=== PATIENT | female | born 1965 | race Caucasian/White ===

== ENCOUNTER 2016-12-13 18:28 | Observation (INO) ==
[2016-12-13] MEDS ORDERED: Aspirin 81 MG TAB.CHEW PO STA (19:22)
[2016-12-13 19:38] LABS: Hematocrit 30.9 % (35.3-44.9); Immature Granulocytes % 0.5 % (0-4); Lymphocytes # 1.9 K/mcL (0.6-4.6); Lymphocytes % 29.3 %; Mean Corpuscular HGB Conc 32.4 g/dL (31.6-35.5); Mean Corpuscular Hemoglobin 26.3 pg (28.0-33.3); Mean Corpuscular Volume 81.3 fL (83.0-100.0); Monocytes # 0.5 K/mcL (0.0-1.3); Monocytes % 6.9 %; Neutrophils # 4.2 K/mcL (1.6-8.9); Platelet Count 270 K/mcL (140-400); Red Cell Distribution Width 16.2 % (11.5-14.5); Segmented Neutrophils % 63.3 %
--- NOTE | 2016-12-13 19:42 | Emergency Department Note ---
Disposition Clinical Impression: Chest pain Qualifiers: Chest pain type: precordial pain Qualified Code(s): R07.2 - Precordial pain Disposition: Admitted As Inpatient Condition: Good Chest Pain HPI - General Chief Complaint: ED Chest Pain Stated Complaint: CP,JOSE MIGUEL,Dizziness Time Seen by Provider: 12/13/16 18:36 Source: patient, family Limitations: no limitations Vital Signs Reviewed: Yes Nursing Notes Reviewed: Yes - History of Present Illness HPI Narrative: Patient presents today for evaluation of multiple complaints. Patient has had increased swelling of her lower extremities and going on for some time but has been recently worse. Patient describes chest pain in the center of her chest with mild radiation associated dizziness. Patient states that she has had several episodes of diaphoresis she describes getting sweaty. These do not always correlate. Patient does have in her ear issues and has had episodes of problems consistent with what appears to be dizziness that is worse with head movement to the left. Tympanic membranes have mild dullness without obvious infection. Patient describes palpating factors including going through menopause and having hot and cold episodes. Patient has not had any previous cardiac workup. Severity scale (1-10): 8 - Related Data Home Medications Medication Instructions Recorded Confirmed Lisinopril/Hydrochlorothiazide 1 tab PO DAILY 04/30/15 12/13/16 [Zestoretic 20-25 mg Tablet] Citalopram Hydrobromide 40 mg PO DAILY 12/31/15 12/13/16 [Citalopram HBr] Lovastatin [Mevacor] 20 mg PO HS 12/31/15 12/13/16 Metformin HCl [Glucophage] 1,000 mg PO BID 12/31/15 12/13/16 Aspirin 325 mg PO DAILY 12/13/16 12/13/16 Insulin Degludec [Tresiba 42 unit SQ DAILY 12/13/16 12/13/16 Flextouch U-100] Oxybutynin [Ditropan] 5 mg PO BID 12/13/16 12/13/16 Allergies Allergy/AdvReac Type Severity Reaction Status Date / Time No Known Allergies Allergy Verified 01/13/16 15:54 Review of Systems: CONSTITUTIONAL: Fatigue No weight loss, fever, chills, weakness HEENT: Eyes: No visual changes. Ears, Nose, Throat: No hearing loss, difficulty talking or unable to swallow. SKIN: No rash or itching. CARDIOVASCULAR: Chest pain and lower extremity edema RESPIRATORY: No shortness of breath, cough or sputum. GASTROINTESTINAL: No anorexia, nausea, vomiting or diarrhea. No abdominal pain or blood. GENITOURINARY: No burning on urination or hematuria. NEUROLOGICAL: Dizziness No headache, syncope, paralysis, ataxia, numbness or tingling in the extremities. No change in bowel or bladder control. MUSCULOSKELETAL: No muscle pain, back pain, joint pain or stiffness. Chest Pain PMH - Past Medical History Medical history: Reports: cancer, diabetes, hyperlipidemia, hypertension, kidney stones Surgical history: Reports: , cholecystectomy Psychiatric history: Reports: anxiety, depression - Social History Smoking Status: Former smoker Alcohol use: Reports: none Drug use: Reports: none Physical Exam General appearance: NAD, conversant Eyes: anicteric sclerae, moist conjunctivae; PERRL HENT: Atraumatic; oropharynx clear with moist mucous membranes and no mucosal ulcerations; TMs with dullness bilaterally no obvious erythema Neck: Normal inspection; Trachea midline; FROM, supple Lungs: CTA, with normal respiratory effort and no intercostal retractions CV: RRR, no MRGs Abdomen: Soft, non-tender; no rebound or gaurding Extremities: Swelling to her lower extremity bilaterally. Nonpitting. Skin: Normal temperature; no rash, ulcers or lesions Psych: Appropriate mood and affect Neuro: alert and oriented to person, place and time - General Limitations: no limitations General appearance: alert, in no apparent distress Course - Reevaluation(s) Reevaluation #1: Dizziness improved with meclizine. Patient describes a chest pain is improved but her states she is downplaying symptoms to go home. Patient has an elevated heart score and will be brought in for further chest pain evaluation. Vital Signs Temperature 98.3 F 12/13/16 18:36 Pulse Rate 77 12/13/16 18:36 Respiratory Rate 18 12/13/16 18:36 Blood Pressure 137/59 12/13/16 18:36 O2 Sat by Pulse Oximetry 97 12/13/16 18:36 Temperature 97.6 F 12/14/16 03:28 Pulse Rate 60 12/14/16 03:28 Respiratory Rate 12 12/14/16 03:28 Blood Pressure 120/77 12/14/16 03:28 O2 Sat by Pulse Oximetry 98 12/14/16 03:28 Oxygen Delivery Oxygen Delivery Room Air Chest Pain - Medical Records Medical records reviewed: Yes I reviewed the patient's medical records. - Lab Data Lab results reviewed: Yes I reviewed the patient's lab results. Result diagrams: 12/14/16 04:40 12/14/16 04:40 Lab Results 12/13/16 12/13/16 12/13/16 Range/Units 19:30 19:30 19:30 WBC 6.6 (4.3-11.1) K/mcL RBC 3.80 L (3.82-4.97) M/mcL Hgb 10.0 L (11.5-15.4) g/dL Hct 30.9 L (35.3-44.9) % MCV 81.3 L (83.0-100.0) fL MCH 26.3 L (28.0-33.3) pg MCHC 32.4 (31.6-35.5) g/dL RDW 16.2 H (11.5-14.5) % Plt Count 270 (140-400) K/mcL MPV 9.0 L (9.4-12.4) fL Immature Gran % 0.5 (0-4) % Seg Neutrophils % 63.3 % Lymphocytes % 29.3 % Monocytes % 6.9 % Eosinophils % 0.0 % Basophils % 0.0 % Neutrophils # 4.2 (1.6-8.9) K/mcL Lymphocytes # 1.9 (0.6-4.6) K/mcL Monocytes # 0.5 (0.0-1.3) K/mcL Eosinophils # 0.0 (0.0-0.6) K/mcL Basophils # 0.0 (0.0-0.2) K/mcL PT 12.8 H (9.4-12.1) Seconds INR 1.2 Sodium (136-145) mEq/L Potassium (3.5-4.5) mEq/L Chloride (98-109) mEq/L Carbon Dioxide (19-29) mEq/L BUN (7-20) mg/dL Creatinine (0.57-1.11) mg/dL Est GFR ( Amer) (> 60) Est GFR (Non-Af Amer) (> 60) BUN/Creatinine Ratio (6-26) Glucose (70-99) mg/dL Calculated Osmolality (280-300) Calcium (8.6-10.8) mg/dL Troponin I (0-0.03) ng/mL B-Natriuretic Peptide < 10 (0-100) pg/mL 12/13/16 12/13/16 Range/Units 19:30 19:30 WBC (4.3-11.1) K/mcL RBC (3.82-4.97) M/mcL Hgb (11.5-15.4) g/dL Hct (35.3-44.9) % MCV (83.0-100.0) fL MCH (28.0-33.3) pg MCHC (31.6-35.5) g/dL RDW (11.5-14.5) % Plt Count (140-400) K/mcL MPV (9.4-12.4) fL Immature Gran % (0-4) % Seg Neutrophils % % Lymphocytes % % Monocytes % % Eosinophils % % Basophils % % Neutrophils # (1.6-8.9) K/mcL Lymphocytes # (0.6-4.6) K/mcL Monocytes # (0.0-1.3) K/mcL Eosinophils # (0.0-0.6) K/mcL Basophils # (0.0-0.2) K/mcL PT (9.4-12.1) Seconds INR Sodium 137 (136-145) mEq/L Potassium 4.6 H (3.5-4.5) mEq/L Chloride 105 (98-109) mEq/L Carbon Dioxide 25 (19-29) mEq/L BUN 31 H (7-20) mg/dL Creatinine 1.12 H (0.57-1.11) mg/dL Est GFR ( Amer) > 60 (> 60) Est GFR (Non-Af Amer) 52 L (> 60) BUN/Creatinine Ratio 28 H (6-26) Glucose 158 H (70-99) mg/dL Calculated Osmolality 294 (280-300) Calcium 8.8 (8.6-10.8) mg/dL Troponin I 0.00 (0-0.03) ng/mL B-Natriuretic Peptide (0-100) pg/mL - Radiology Data Radiology results reviewed: Yes I reviewed the patient's radiology results. - EKG Data EKG attestation: Yes I reviewed and interpreted this EKG. EKG results narrative: EKG shows sinus rhythm with ventricular rate of 73 bpm. WA interval 196. QRS 95. QTC 389. The significant changes from previous of 04/28/15. Heart Score - Score History: Moderately Suspicious EKG: Non Specific repolarisation Disturbance Age: 45-65 Risk Factors: Equal/Greater than 3 risk factor or history of atherosclerotic disease Troponin: Less than normal limit HEART Score Total: 5 Attestation Statement - Attestation Attestation: I, Clyde Coy MD, personally evaluated this patient and discussed their management with the resident physician. I reviewed the resident's note and agree with the documented findings, medical decision making, and plan of care. 51-year-old female presents to the emergency department with a complaint of having increased swelling of her feet and ankles over the last week. She also complains that over the last 3 days she has had intermittent episodes of mid chest pain which she describes as pressure in the mid chest but states it does not last very long. Today about 3 PM she had an episode of vertigo when she stood up and states that the room started spinning and she got very diaphoretic and very nauseated. No headache. Shortly after the vertigo episode started she did have some chest pain which lasted longer than the previous episodes. She has no known prior history of heart problems other than she states that she does have a heart murmur. Patient is diabetic and has morbid obesity. On examination patient is a well-developed morbidly obese female in no acute distress. She is alert and oriented 3. There is no cyanosis or diaphoresis. Chest is nontender to palpation. Breath sounds are clear and equal bilaterally. Heart regular rate and rhythm. Abdomen soft and nontender with normal bowel sounds. 2+ bilateral pedal edema. No gross focal neurological deficits noted. Labs reviewed. EKG shows a sinus rhythm, heart rate 73, no acute changes or arrhythmia. Chest x-ray negative. The hospitalist was consulted and accepted admission of the patient.
[2016-12-13 19:46] LABS: INR 1.2; Prothrombin Time 12.8 Seconds (9.4-12.1)
[2016-12-13 19:51] LABS: BUN/Creatinine Ratio 28 (6-26); Blood Urea Nitrogen 31 mg/dL (7-20); Calcium 8.8 mg/dL (8.6-10.8); Carbon Dioxide 25 mEq/L (19-29); Chloride 105 mEq/L (98-109); Glucose 158 mg/dL (70-99); Osmolality,Calculated 294 (280-300); Potassium 4.6 mEq/L (3.5-4.5); Sodium 137 mEq/L (136-145); eGFR For African Americans > 60 (> 60); eGFR For Non-African Americans 52 (> 60)
[2016-12-14] MEDS ORDERED: Acetaminophen 325 MG TABLET PO PRN (03:01)
[2016-12-14] MEDS ORDERED: Naloxone 0.4 MG/ML INJ IVP PRN (03:01)
[2016-12-14] MEDS ORDERED: Ondansetron 4 MG/2 ML VIAL IVP PRN (03:01)
[2016-12-14] MEDS ORDERED: *HR* Dextrose 50 % in Water (Syg) 50 ML SYRINGE IVP PRN (03:01)
[2016-12-14] MEDS ORDERED: D5% in Water 1,000 ML IVC PRN (03:01)
[2016-12-14] MEDS ORDERED: Dextrose Gel 15 GM PO PRN ×2 (03:01)
[2016-12-14] MEDS ORDERED: *HR* Morphine 2 MG/ML SYRINGE IVP PRN (03:01)
--- NOTE | 2016-12-14 03:17 | Internal Med History&Physical ---
Date of Encounter: 12/14/16 Time of Encounter: 02:45 Assessment and Plan (1) Chest pain Current visit: Yes Status: Acute 1. Will cycle troponins. 2. Will order ECHO and nuclear stress test. 3. Check lipid profile. 4. Continue daily aspirin. Qualifiers: Chest pain type: precordial pain Qualified Code(s): R07.2 - Precordial pain (2) IDDM (insulin dependent diabetes mellitus) Current visit: Yes Status: Chronic 1. Will hold Metformin. 2. Will use SSI for now while npo. 3. Hold basal insulin for now as her glucose is 89 while npo. 4. Monitor glucose and adjust treatment as necessary. (3) Hypertension Current visit: Yes Status: Chronic 1. Monitor BP and continue home meds as appropriate. Qualifiers: Hypertension type: essential hypertension Qualified Code(s): I10 - Essential (primary) hypertension (4) DVT prophylaxis Current visit: Yes Status: Acute 1. Heparin SQ. Internal Medicine - H&P: HPI Chief complaint: chest pain, dizziness Admitted From: Emergency Dept Plans for Post Hospital Care: Home History of present illness: Ms. Miranda is a 51 year old female who presents with sudden onset of chest pain , dizziness, diaphoresis, and near syncope while at work today. She has been having chest pain off and on for the last 4 days, but today's episode was severe and rather frightening. She therefore came to the ER for evaluation. She was subsequently admitted to the hospitalist service. Upon my assessment of the patient, she is currently symptom-free and feels back to baseline. She reiterates the above history and admits to having had chest pain for the last few days. She denies any prior heart disease history, but she does have risk factors. She is diabetic and there is a history of heart disease in the family. She denies any tobacco use or alcohol use. She did have a stress test and echo 6 years ago which were negative. This is her first episode of chest pain since then. Past Med Surg Social Fam HX - Past Medical History Attestation: Yes The following information was validated with the patient. Source: patient, old records reviewed Medical history: cancer, diabetes, hyperlipidemia, hypertension, kidney stones Psychiatric history: anxiety, depression - Past Surgical History Surgical History: , cholecystectomy - Social History Smoking Status: Former smoker Smokeless Tobacco Status: No Alcohol use: none Drug use: none Current living situation: Home, With Family Activity Level: Independent ambulation - Family History Father Living Status: Hx Family Cardiac Disorders: Yes Mother Living Status: Still Living Hx Family Cardiac Disorders: No Internal Medicine - H&P: Meds Lisinopril/Hydrochlorothiazide [Zestoretic 20-25 mg Tablet] 1 tab PO DAILY 04/30 [History] Citalopram Hydrobromide [Citalopram HBr] 40 mg PO DAILY 12/31/15 [History] Lovastatin [Mevacor] 20 mg PO HS 12/31/15 [History] Metformin HCl [Glucophage] 1,000 mg PO BID 12/31/15 [History] Aspirin 325 mg PO DAILY 12/13/16 [History] Insulin Degludec [Tresiba Flextouch U-100] 42 unit SQ DAILY 12/13/16 [History] Oxybutynin [Ditropan] 5 mg PO BID 12/13/16 [History] Allergies No Known Allergies Allergy (Verified 01/13/16 15:54) - Constitutional Constitutional: no chills, no fever(s) - EENT Eyes: no blurry vision, no change in vision Ears: no ear pain, no tinnitus Nose, mouth and throat: no nasal congestion, no nasal discharge, no sinus pain, no sinus pressure, no sore throat - Cardiovascular Cardiovascular ROS IM: chest pain, diaphoresis, dyspnea, dyspnea on exertion, edema, lightheadedness, no irregular heart rhythm, no syncope - Respiratory Respiratory: no cough, no hemoptysis, no chest congestion - Gastrointestinal Gastrointestinal: no abdominal pain, no diarrhea, no hematemesis, no hematochezia, no melena, no nausea, no vomiting - Genitourinary Genitourinary: no dysuria, no flank pain, no hematuria - Musculoskeletal Musculoskeletal ROS IM: no arthralgias, no back pain, no muscle cramps - Integumentary Integumentary IM: no rash, no jaundice - Neurological Neurological ROS: dizziness, no focal weakness, no frequent falls, no headache(s ) - Psychiatric Psychiatric: no anxiety, no depression - Endocrine Endocrine IM: no cold intolerance, no heat intolerance, no polydipsia, no polyuria - Hematologic/Lymphatic Hematologic/Lymphatic: no easy bruising, no lymphadenopathy - Allergic/Immunologic Allergic/Immunologic: no GI upset with certain foods - Constitutional Vitals: Temp Pulse Resp BP Pulse Ox 97.6 F 63 12 126/74 96 12/13/16 22:56 12/13/16 22:56 12/13/16 22:56 12/13/16 22:56 12/13/16 22:56 General appearance: Present: cooperative, A&O X 3, pleasant, no acute distress - Head Head exam: Present: atraumatic, normal inspection - Eye Eye exam: Present: EOMI, normal appearance, PERRL. Absent: scleral icterus Pupils: Present: normal accommodation - ENT ENT exam: Present: mucous membranes moist, normal exam - Neck Neck exam general surgery: Present: full ROM, normal inspection, supple. Absent : tenderness - Expanded Neck Exam Neck exam: Absent: carotid bruit - Respiratory Respiratory exam: Present: CTAB. Absent: chest wall tenderness, rales, rhonchi , wheezes - Cardiovascular Cardiovascular exam: Present: distant heart sounds, RRR, +S1, +S2. Absent: diastolic murmur, systolic murmur - GI/Abdominal GI/Abdominal exam: Present: normal bowel sounds, soft. Absent: hepatomegaly, mass, splenomegaly, tenderness - Extremities Exam Extremities exam: Present: full ROM, normal capillary refill, warm, radial pulses palpable and symmetrical. Absent: calf tenderness, joint swelling, pedal edema - Back Exam Back exam: Present: normal inspection. Absent: CVA tenderness (L), CVA tenderness (R) - Neurological Exam Neurological exam: Present: alert, CN II-XII intact, oriented X3, no focal deficits, strengths equal and symetr throughout - Psychiatric Psychiatric exam: Present: normal affect, normal mood - Skin Skin exam: Present: dry, warm. Absent: rash Internal Med - H&P Results - Labs CBC & Chem 7: 12/13/16 19:30 12/13/16 19:30 - EKG Data -: EKG Interpreted by Myself EKG shows normal: sinus rhythm - EKG Data Prior EKG available for review: yes When compared to previous EKG: there is no significant change EKG comments: 12/14/16 03:21 NSR; no acute ST-T changes - Diagnostic Studies Chest x-ray Status: image reviewed by me (negative)
[2016-12-14] MEDS: Insulin LISPRO 300 UNITS/3 ML VIAL SQ SCH ×4 (05:19→23:36)
[2016-12-14] MEDS: *HR* Heparin 5,000 UNIT/ML VIAL SQ SCH ×3 (05:19→22:58)
[2016-12-14 05:20] LABS: Hematocrit 30.3 % (35.3-44.9); Hemoglobin 9.6 g/dL (11.5-15.4); Immature Granulocytes % 0.6 % (0-4); Lymphocytes # 1.8 K/mcL (0.6-4.6); Lymphocytes % 35.3 %; Mean Corpuscular HGB Conc 31.7 g/dL (31.6-35.5); Mean Corpuscular Volume 82.1 fL (83.0-100.0); Mean Platelet Volume 9.3 fL (9.4-12.4); Monocytes # 0.4 K/mcL (0.0-1.3); Monocytes % 8.4 %; Neutrophils # 2.9 K/mcL (1.6-8.9); Platelet Count 262 K/mcL (140-400); Red Blood Count 3.69 M/mcL (3.82-4.97); Segmented Neutrophils % 55.7 %
[2016-12-14 05:42] LABS: Alanine Aminotransferase 11 Units/L (0-55); Albumin 3.2 g/dL (3.5-5.0); Alkaline Phosphatase 73 Units/L (38-126); Aspartate Amino Transferase 10 Units/L (5-34); BUN/Creatinine Ratio 29 (6-26); Bilirubin,Total 0.4 mg/dL (0.2-1.2); Blood Urea Nitrogen 29 mg/dL (7-20); Calcium 9.2 mg/dL (8.6-10.8); Carbon Dioxide 27 mEq/L (19-29); Chloride 107 mEq/L (98-109); Chol/HDL Ratio 4.8 (0-4.9); Cholesterol 133 mg/dL (< 200); Globulin 3.3 g/dL (2.4-3.5); Glucose 117 mg/dL (70-99); HDL Cholesterol 28 mg/dL (40-59); LDL Cholesterol,Calculated 70 mg/dL (0-99); Magnesium 1.5 mg/dL (1.6-2.6); Osmolality,Calculated 295 (280-300); Potassium 4.8 mEq/L (3.5-4.5); Sodium 139 mEq/L (136-145); Total Protein 6.5 g/dL (6.0-8.3); Triglycerides 173 mg/dL (< 150); eGFR For African Americans > 60 (> 60); eGFR For Non-African Americans 58 (> 60)
[2016-12-14] MEDS ORDERED: Regadenoson 0.4 MG/5 ML SYRINGE IVP ONE (06:20)
[2016-12-14] MEDS ORDERED: Perflutren Lipid Microsphere 1.3 ML in 0.9 % Sodium Chloride 8.7 ML IVP ONE (13:25)
[2016-12-14] MEDS: Aspirin 325 MG TABLET PO SCH (14:58)
--- NOTE | 2016-12-14 15:16 | Electrocardiograph Report ---
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
--- NOTE | 2016-12-14 15:44 | Electrocardiograph Report ---
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
--- NOTE | 2016-12-14 16:42 | Internal Med Progress Note ---
Date of Encounter: 12/14/16 Time of Encounter: 15:20 - Assessment and plan (1) Chest pain Current Visit: Yes Status: Acute Assessment and plan: Patient denies chest pain. She said she has had no chest pain since arrival. Troponins were negative 3. Chest x-ray was negative for any acute process. Patient is a 2 day stress, day 2 is tomorrow. EKG was sinus rhythm with a rate of 60, SC interval 197, QRS is 86, QTC 405. Echocardiogram was technically challenging with suboptimal windows. LV systolic function was normal with the use of Definity with an LVEF of 60%, RV size appears dilated with normal function, mild TR. Lipid panel completed, triglycerides were elevated. She has been started on Zocor. Continue telemetry Stress test pending Monitor labs and pt condition Continue ASA and statin Qualifiers: Chest pain type: precordial pain Qualified Code(s): R07.2 - Precordial pain (2) Hypertension Current Visit: Yes Status: Chronic Assessment and plan: Chronic. Continue home medications, continue monitoring vital signs. Qualifiers: Hypertension type: essential hypertension Qualified Code(s): I10 - Essential (primary) hypertension (3) IDDM (insulin dependent diabetes mellitus) Current Visit: Yes Status: Chronic Assessment and plan: Continue SSI, Accuchecks achs, and diabetic diet. (4) DVT prophylaxis Current Visit: Yes Status: Acute Assessment and plan: Heparin SQ - Subjective Interval history: Patient was seen and assessed at 1520. She denies chest pain. She denies chest pain since arrival yesterday. She is 2 day a stress test, she is aware of this. She reports intentional 30 pound weight loss in the last 6 months, increased ankle and pedal edema, and her says that her breasts have changed and she has gained a cup size. Patient states that she had a nephrectomy due to renal cancer and has had edema since that time. - Constitutional Vitals: Temp Pulse Resp BP Pulse Ox 98.1 F 61 16 107/66 95 12/14/16 12:00 12/14/16 12:00 12/14/16 12:00 12/14/16 12:00 12/14/16 12:00 General appearance: Present: cooperative, A&O X 3, pleasant, no acute distress, loss of weight, answers questions appropriately. Absent: severe distress - Head Head exam: Present: normal inspection - Eye Eye exam: Present: normal appearance, conjuntiva pink - ENT ENT exam: Present: mucous membranes moist, normal exam, normal external ear exam - Neck Neck exam general surgery: Present: normal inspection. Absent: lymphadenopathy , tenderness - Respiratory Respiratory exam: Present: CTAB. Absent: chest wall tenderness, decreased breath sounds, rales, respiratory distress, rhonchi, stridor, wheezes - Cardiovascular Cardiovascular exam: Present: RRR, +S1, +S2. Absent: clicks, diastolic murmur, gallop, systolic murmur - GI/Abdominal GI/Abdominal exam: Present: distended, normal bowel sounds, soft. Absent: hepatomegaly, tenderness - Extremities Exam Extremities exam: Present: normal inspection, pedal edema, warm, radial pulses palpable and symmetrical. Absent: tenderness - Neurological Exam Neurological exam: Present: alert, oriented X3, no focal deficits. Absent: facial droop, speech deficit Internal Medicine: Result - Labs CBC & Chem 7: 12/14/16 04:40 12/14/16 04:40 Labs: Short CBC 12/14/16 Range/Units 04:40 WBC 5.2 (4.3-11.1) K/mcL Hgb 9.6 L (11.5-15.4) g/dL Hct 30.3 L (35.3-44.9) % Plt Count 262 (140-400) K/mcL Neutrophils # 2.9 (1.6-8.9) K/mcL BMP 12/14/16 04:40 Sodium 139 Potassium 4.8 H Chloride 107 Carbon Dioxide 27 BUN 29 H Creatinine 1.01 Glucose 117 H Calcium 9.2 Cardiac Enzymes 12/14/16 12/14/16 12/14/16 Range/Units 04:40 08:54 15:03 Troponin I 0.00 0.00 0.01 (0-0.03) ng/mL Liver Function 12/14/16 Range/Units 04:40 Total Bilirubin 0.4 (0.2-1.2) mg/dL AST 10 (5-34) Units/L ALT 11 (0-55) Units/L Alkaline Phosphatase 73 (38-126) Units/L Albumin 3.2 L (3.5-5.0) g/dL - ABG Interpretation ABG results: PT/INR, D-dimer PT 12.8 Seconds (9.4-12.1) H 12/13/16 19:30 Consult Discharge Plan - Plan Referrals: Sole Ashby, RONALD [Primary Care Provider] -
[2016-12-15 05:25] LABS: Hematocrit 30.8 % (35.3-44.9); Hemoglobin 9.8 g/dL (11.5-15.4); Immature Granulocytes % 0.8 % (0-4); Immature Platelets 1.1 % (1.1-6.1); Lymphocytes # 1.6 K/mcL (0.6-4.6); Lymphocytes % 33.8 %; Mean Corpuscular HGB Conc 31.8 g/dL (31.6-35.5); Mean Corpuscular Hemoglobin 26.1 pg (28.0-33.3); Mean Corpuscular Volume 81.9 fL (83.0-100.0); Mean Platelet Volume 9.4 fL (9.4-12.4); Monocytes # 0.4 K/mcL (0.0-1.3); Monocytes % 8.6 %; Neutrophils # 2.7 K/mcL (1.6-8.9); Platelet Count 277 K/mcL (140-400); Red Blood Count 3.76 M/mcL (3.82-4.97); Segmented Neutrophils % 56.8 %
[2016-12-15 05:36] LABS: BUN/Creatinine Ratio 26 (6-26); Blood Urea Nitrogen 26 mg/dL (7-20); Calcium 9.2 mg/dL (8.6-10.8); Carbon Dioxide 22 mEq/L (19-29); Chloride 108 mEq/L (98-109); Glucose 124 mg/dL (70-99); Osmolality,Calculated 292 (280-300); Sodium 138 mEq/L (136-145); eGFR For African Americans > 60 (> 60); eGFR For Non-African Americans 59 (> 60)
[2016-12-15] MEDS: *HR* Heparin 5,000 UNIT/ML VIAL SQ SCH (05:42)
[2016-12-15] MEDS: Insulin LISPRO 300 UNITS/3 ML VIAL SQ SCH ×2 (06:46→13:14)
[2016-12-15] MEDS: Aspirin 325 MG TABLET PO SCH (08:07)
--- NOTE | 2016-12-15 11:39 | Nuclear Medicine Stress Report ---
Regadenoson Nuclear 2 day Name: Eleni Miranda Date of Study: 12/14/2016 Date: 1965 Ht: 68.0 in Medical Record#: [id number] Age: 51 Wt: 388.0 lb Gender: Female Order #: [id number] Location: [facility] Room: 3B Supervising Provider: Ricky Chu CNP Reading Physician: Michael Hinojosa MD, [facility] Ordering Physician: Karo Macdonald CNP Primary Care Physician: Sole Ashby CNP Stress Technologist: Christie Palencia [employer] MECHANIC APPRENTICE, CCT Equal Opportunity Director: Conchita Alvarez Indications: Chest Pain Impression: Technically difficult study due to body habitus and some patient motion artifact. Gated LVEF > 70%. Small-medium sized, mild-moderate intensity, reversible perfusion defect involving the apical anterior wall, apical lateral wall, and apex. Findings are consistent with reversible myocardial ischemia involving the apical anterior wall, apical lateral wall, and apex. Abnormal results were communicated to the ordering provider via [employer] message. History: Hypertension Diabetes Hypercholesteremia Stress Test Summary: Stress Test Type: Pharmacologic Regadenoson 0.4mg/5ml given IV Baseline Information: Initial Heart Rate: 63 Blood Pressure: 122/66 Stress Information: Test Terminated Due to (primary): As per protocol Maximum Blood Pressure: 126/64 Maximum Heart Rate: 90 Percent Maximum Heart Rate Achieved: 53 Double Product: [id number] Symptoms: No chest symptoms Nuclear Summary: SPECT myocardial perfusion imaging using Tc99m Sestamibi given intravenously was performed at rest and following cardiac stress testing. The resting images were obtained following initial dose of 33.8 mCi. Following stress an additional dose of 35.3 mCi was given at peak exercise or 30 seconds post regadenoson infusion. Findings: Stress Note * Resting ECG demonstrated sinus rhythm, low voltage in precordial leads. * No baseline arrhythmias were noted. * Patient had no chest pain during stress. * No arrhythmias were noted during stress. * No significant ECG changes with regadenoson. Hemodynamic responses * Normal hemodynamic responses to pharmacologic stress. Study Quality * Technically difficult study due to body habitus and some patient motion artifact. Gated EF > 70% * Gated LVEF > 70%. Left Ventricle * The left ventricle is not dilated. * Normal Segmental Perfusion in rest. * Small-medium sized, mild-moderate intensity, reversible perfusion defect involving the apical anterior wall, apical lateral wall, and apex. * Findings are consistent with reversible myocardial ischemia involving the apical anterior wall, apical lateral wall, and apex. * All other segmental perfusion normal in stress. TID * No evidence of transient ischemic dilatation. Updated by Michael Hinojosa MD, FACC on 12/15/2016 11:32:20 AM electronically signed on 12/15/2016 11:33:12 AM with status of Final
[2016-12-15 15:02] VITALS: BP 127/75
--- NOTE | 2016-12-15 16:15 | Cardiology Consult Note ---
Date of Encounter: 12/15/16 Time of Encounter: 16:10 Assessment and Plan (1) Abnormal stress test Current Visit: Yes Status: Acute Stress test was a two day study. It was technically difficult due to body habitus. Stress test showed: Gated LVEF > 70%. Small-medium sized, mild-moderate intensity, reversible perfusion defect involving the apical anterior wall, apical lateral wall, and apex.Findings are consistent with reversible myocardial ischemia involving the apical anterior wall, apical lateral wall, and apex. TTE was also a difficult study that showed preserved EF and no significant valvular disease. (Mild TR). Cardiac risk factors HTN, HLD, and DM type II. Chest pain was atypical. I discussed [facility] indications, benefits, risks, and alternatives. Medical management also discussed. She does have solitary kidney secondary to renal cancer. Stress test was a poor study, low risk test. She agrees with medical management and out patient f/u/ Add betablocker and SL NTG. Continue statin and asa. Out-pt f/u will be scheduled with [facility]. Discussion w patient/family: The assessment and plan as outlined above was discussed with the patient and/or family members who expressed understanding and agreement. All questions were answered. Thank you for involving us in the care of your patient. Please call with any questions. History of Present Illness Consult date: 12/15/16 Requesting physician: Viviana Danielle Consult reason: Abnormal stress test Chief complaint: Chest pain and SOB History of present illness: Ms. Miranda is a 51 year old female with a past medical history of HTN, HLD, DM , renal cancer s/p nephrectomy, and morbid obesity who presents with chest discomfort starting yesterday. She c/o midsternal chest pressure starting while she was at work sitting at her desk. The pain was associated with dizziness and diaphoresis. Reports she sometimes she breaks out in a hot sweat without chest pain. She was given meclizine in the ER with relief of her dizziness. She also c/o SOB with activity that is normal for her. She reports having chest discomfort before. The pain often occurs with emotional stress and anxiety. Cardiac work-up included troponin x 3 that were negative. EKG showed NSR with no EKG changes. She underwent a stress test that was found to be abnormal and cardiology was consulted for evaluation. Past Med Surg Social Fam HX - Past Medical History Medical history: cancer, diabetes, hyperlipidemia, hypertension, kidney stones Psychiatric history: anxiety, depression - Past Surgical History Surgical History: , cholecystectomy - Social History Smoking Status: Former smoker Smokeless Tobacco Status: No Alcohol use: none Drug use: none - Family History Father Living Status: Hx Family Cardiac Disorders: Yes Mother Living Status: Still Living Hx Family Cardiac Disorders: No Medications and Allergies Lisinopril/Hydrochlorothiazide [Zestoretic 20-25 mg Tablet] 1 tab PO DAILY 04/30 [History] Citalopram Hydrobromide [Citalopram HBr] 40 mg PO DAILY 12/31/15 [History] Lovastatin [Mevacor] 20 mg PO HS 12/31/15 [History] Metformin HCl [Glucophage] 1,000 mg PO BID 12/31/15 [History] Aspirin 325 mg PO DAILY 12/13/16 [History] Insulin Degludec [Tresiba Flextouch U-100] 42 unit SQ DAILY 12/13/16 [History] Oxybutynin [Ditropan] 5 mg PO BID 12/13/16 [History] 3 Allergy/AdvReac Type Severity Reaction Status Date / Time No Known Allergies Allergy Verified 01/13/16 15:54 All Systems Review: A 10-system review of systems was performed and is negative for pertinent findings except as documented above in the HPI. Physical Examination Vital Signs, Last 4 Hours Temp Pulse Resp BP Pulse Ox 12/15/16 14:59 98.3 F 65 14 127/75 96 General: Conversant, No Apparent Distress, Other (morbidly obese female) HEENT: Atraumatic, Normocephaly, Mucus Membranes Moist Neck: No JVD, Normal carotid pulses Cardiac: Reg Rate and Rhythm, Normal S1 and S2, No Murmur Lungs: Normal Breath Sounds, No Wheeze, Rales, Rhonchi Neuro: Alert and responsive, No focal deficits noted Abdomen: Soft, Non-Tender Skin: No rashes noted on visualized skin Musculoskeletal: No Chest Wall Tenderness Extremities: No Clubbing, No Cyanosis, No Edema, Normal Pulses Results 12/15/16 04:28 12/15/16 04:28 Lab Results 12/15/16 12/15/16 04:28 04:28 WBC 4.8 Hgb 9.8 L Hct 30.8 L Plt Count 277 Sodium 138 Potassium 5.0 H Chloride 108 Carbon Dioxide 22 BUN 26 H Creatinine 1.00 Glucose 124 H Calcium 9.2 - Imaging and Cardiology Stress Test: report reviewed Echo: report reviewed - EKG Interpretation EKG results cardiology: personally reviewed Consult Discharge Plan - Plan Instructions: Chest Pain (DC), Chronic Hypertension (DC) Referrals: Sole Ashby CNP [Primary Care Provider] - 12/20/16 4:00 pm
--- NOTE | 2016-12-15 16:38 | Discharge Summary ---
Date of Encounter: 12/15/16 Time of Encounter: 08:30 - Discharge Diagnosis (1) Chest pain Priority: Primary Status: Acute Comments: Pt reports sudden onset chest pain, dizzines, diaphoresis, and near syncope while at work on day of admission. REports same chest pain intermittently for 4 days, but it was worse and she was concerned about it being worse. Pt has not had any chest pain at all since arrival. Pt has multiple risk factors including obesity, diabetes, family history, and elevated triglycerides. 2 day stress test was abnormal and pt was seen by cardiology. Pt will continue statin and ASA, add BB and SL NTG. Qualifiers: Chest pain type: precordial pain Qualified Code(s): R07.2 - Precordial pain (2) Hypertension Priority: Secondary Status: Chronic Comments: Chronic. Continue home medications. Pt will be adding BB to regimen. Qualifiers: Hypertension type: essential hypertension Qualified Code(s): I10 - Essential (primary) hypertension (3) IDDM (insulin dependent diabetes mellitus) Priority: Secondary Status: Chronic Comments: A1c was 5.2 in July. Accuchecks have been elevated. Continue home medications and follow up with PCP. (4) Morbid obesity with BMI of 50.0-59.9, adult Priority: Secondary Status: Chronic Comments: Chronic. Lifestyle changes. Pt states that she is dieting and has intentionally lost 20#. (5) Abnormal stress test Priority: Secondary Status: Acute Comments: Plan as above. (6) DVT prophylaxis Priority: Secondary Status: Acute Comments: Heparin SQ - Discharge Medications Prescriptions: Metoprolol [Lopressor] 25 mg PO BID #60 tab Home Medications: Lisinopril/Hydrochlorothiazide [Zestoretic 20-25 mg Tablet] 1 tab PO DAILY 04/30 [History] Citalopram Hydrobromide [Citalopram HBr] 40 mg PO DAILY 12/31/15 [History] Lovastatin [Mevacor] 20 mg PO HS 12/31/15 [History] Metformin HCl [Glucophage] 1,000 mg PO BID 12/31/15 [History] Aspirin 325 mg PO DAILY 12/13/16 [History] Insulin Degludec [Tresiba Flextouch U-100] 42 unit SQ DAILY 12/13/16 [History] Oxybutynin [Ditropan] 5 mg PO BID 12/13/16 [History] Metoprolol [Lopressor] 25 mg PO BID #60 tab 12/15/16 [Rx] Allergies/Adverse Reactions: 3 Allergy/AdvReac Type Severity Reaction Status Date / Time No Known Allergies Allergy Verified 01/13/16 15:54 Procedures/tests Complete & Pending: Procedures Performed prior 72 hours Category Date Time Status NM silvestre perf SPECT multi [NM] Routine Exams 12/14/16 03:06 Taken ECG 12 lead ECG [ECG] AM 0600 Y 12/14/16 06:00 Completed EV echocardiogram w enhance Routine Y 12/14/16 03:01 Completed SP pharm nuclear stress Routine Y 12/14/16 07:15 Completed Date of admission: 12/13/16 21:48 Primary care physician: Sole Ashby CNP Consults: 12/15/16 11:36 Consult to Cardiology [CONS] Routine Comment: Consulting Provider: Cardiology [facility] Reason for Consult: abnormal stress test Call Completed: Yes Discharging clinician: Viviana Danielle Anticipated date of discharge: 12/15/16 - Patient Status Disposition: Home, Self-Care Functional capacity at discharge: independent ambulation - Discharge Instructions Instructions: Chest Pain (DC), Chronic Hypertension (DC) Follow Up With: Sole Ashby CNP [Primary Care Provider] - 12/20/16 4:00 pm Additional Instructions: Follow up with cardiology in the office as scheduled. Follow up with your PCP in the next 7-10 days for a recheck. Return to the ER as needed for any other problems or concerns or if your symptoms worsen or return. STart your new medication tomorrow morning. - Diet and Activity Activity: increase activity as tolerated, return to work once cleared by your PCP/specialist Diet: diabetic diet Hospital course: Ms. Miranda is a 51 year old female with PMH of renal carcinoma, nephrectomy, HTN, HLD, DMII, and morbid obesity. she presented to the ED with c/o 4 day history of chest pain, worse on day of admission while she was at work. This episode was worse and frightening. Chest pain was mid-sternal with no radiation , nausea, dizziness, diaphoresis, and near sycope. Pt was pain free since arrival. Troponins were negative 3. Chest x-ray was negative for any acute process. Patient is a 2 day stress, day 2 is tomorrow. EKG was sinus rhythm with a rate of 60, DE interval 197, QRS is 86, QTC 405. Echocardiogram was technically challenging with suboptimal windows. LV systolic function was normal with the use of Definity with an LVEF of 60%, RV size appears dilated with normal function, mild TR. Lipid panel completed, triglycerides were elevated. She has been started on Zocor. Pt was a 2 day stress test with abnormal results. echnically difficult study due to body habitus and some patient motion artifact. Gated LVEF > 70%. Small-medium sized, mild-moderate intensity, reversible perfusion defect involving the apical anterior wall, apical lateral wall, and apex. Findings are consistent with reversible myocardial ischemia involving the apical anterior wall, apical lateral wall, and apex. Pt was seen by cardiology and willl be treated with medical management.Pt is already on a statin and ASA, She will start a BB and NTG SL. Pt is not a smoker and is on a weight loss diet. She reports 20# weight loss in the last 6 months. Vitals have been stable, labs are WNL. Pt is ready for discharge to home. - Time Spent with Patient Total time spent providing and/or coordinating discharge services: Less than 30 minutes - Constitutional Vitals: Temp Pulse Resp BP Pulse Ox 98.3 F 65 14 127/75 96 12/15/16 14:59 12/15/16 14:59 12/15/16 14:59 12/15/16 14:59 12/15/16 14:59 General appearance: Present: cooperative, A&O X 3, morbidly obese, pleasant, no acute distress, loss of weight, answers questions appropriately. Absent: severe distress - Head Head exam: Present: normal inspection - Eye Eye exam: Present: EOMI, normal appearance, conjuntiva pink - ENT ENT exam: Present: mucous membranes moist, normal exam, normal external ear exam - Neck Neck exam general surgery: Present: normal inspection. Absent: lymphadenopathy , tenderness - Respiratory Respiratory exam: Present: CTAB. Absent: chest wall tenderness, decreased breath sounds, rales, respiratory distress, rhonchi, stridor, wheezes - Cardiovascular Cardiovascular exam: Present: RRR, +S1, +S2. Absent: clicks, diastolic murmur, gallop, systolic murmur - GI/Abdominal GI/Abdominal exam: Present: normal bowel sounds, soft. Absent: distended, hepatomegaly, tenderness - Extremities Exam Extremities exam: Present: normal inspection, pedal edema, warm, radial pulses palpable and symmetrical. Absent: cyanotic, tenderness - Neurological Exam Neurological exam: Present: alert, oriented X3, no focal deficits, facial droop , speech deficit. Absent: altered - Skin Skin exam: Present: dry, intact, normal color, warm. Absent: rash, urticaria
== END 2016-12-15 17:19 | disposition home or self-care (01) ==
LOC: 3BNU 18:28 → EMEROO 18:28 → 3BNU 22:00
PROVIDERS: ADMIT Nurse Practitioner Family; ATTEND Nurse Practitioner Family

== ENCOUNTER 2019-02-28 16:17 | Inpatient (IN) ==
[2019-02-28] MEDS ORDERED: *HR* HYDROcodone/Acet 10/325 mg TABLET PO STA (17:00)
[2019-02-28 17:35] LABS: Basophils % 0.2 %; Hematocrit 32.9 % (35.3-44.9); Hemoglobin 10.7 g/dL (11.5-15.4); Immature Granulocytes % 1.7 % (0-4); Lymphocytes # 1.1 K/mcL (0.6-4.6); Lymphocytes % 16.5 %; Mean Corpuscular HGB Conc 32.5 g/dL (31.6-35.5); Mean Corpuscular Hemoglobin 27.9 pg (28.0-33.3); Mean Corpuscular Volume 85.9 fL (83.0-100.0); Mean Platelet Volume 9.4 fL (9.4-12.4); Monocytes # 0.4 K/mcL (0.0-1.3); Monocytes % 6.3 %; Neutrophils # 4.8 K/mcL (1.6-8.9); Platelet Count 302 K/mcL (140-400); Red Blood Count 3.83 M/mcL (3.82-4.97); Red Cell Distribution Width 18.5 % (11.5-14.5); Segmented Neutrophils % 75.3 %; White Blood Count 6.4 K/mcL (4.3-11.1)
[2019-02-28 17:53] LABS: Calcium 8.5 mg/dL (8.6-10.3); Potassium 6.8 mEq/L (3.5-5.1)
[2019-02-28] MEDS ORDERED: 0.9 % Sodium Chloride 1,000 ML IVC ONE (17:54)
[2019-02-28] MEDS ORDERED: Calcium Gluconate 1gm/50mL 1 GM/50 ML BAG IVPB STA (18:00)
[2019-02-28] MEDS ORDERED: Albuterol 2.5 MG/3 ML NEBULIZER IH ONE (18:01)
[2019-02-28] MEDS ORDERED: *HR* Dextrose 50 % in Water (Syg) 50 ML SYRINGE IVP ONE (18:02)
[2019-02-28] MEDS ORDERED: Calcium Gluconate 1gm/50mL 2 G/100 ML BAG IVPB STA (18:04)
[2019-02-28] MEDS ORDERED: Insulin Human Regular 10 UNIT in 0.9 % Sodium Chloride 10 ML IV STA (18:04)
[2019-02-28] MEDS ORDERED: Sodium Bicarbonate 50 MEQ/50 ML VIAL IVP ONE (18:06)
[2019-02-28] MEDS ORDERED: Calcium Gluconate 1gm/50mL 2 GM/100 ML BAG IVPB ONE (18:06)
[2019-02-28] MEDS ORDERED: *HR* Dextrose 50 % in Water (Syg) 50 ML SYRINGE ONE (18:07)
[2019-02-28] MEDS ORDERED: Cefepime HCl 2,000 MG in Water for inj. (sterile) 20 ML IVP STA (18:23)
[2019-02-28] MEDS ORDERED: *HR* HYDROmorphone (PF) 1 MG/ML SYRINGE IVP STA (18:37)
[2019-02-28 19:37] LABS: Bilirubin,Urine Negative (Negative); Blood,Urine Negative (Negative); Clarity,Urine Cloudy (Clear); Color,Urine Yellow (Yellow); Glucose,Urine (UA) Normal (Normal); Ketones,Urine Negative (Negative); Leukocyte Esterase,Urine Moderate (Negative); Nitrite,Urine Negative (Negative); PH,Urine 5.5 pH Units (5.0-8.0); Protein,Urine 30 mg/dL (Neg-Trace); Specific Gravity,Urine 1.016 (1.010-1.025); Urobilinogen,Urine Normal (Normal)
[2019-02-28 19:39] LABS: Bacteria,Urine Few per hpf (None-Few); Hyaline Casts,Urine None Seen per lpf (None-Few); Squamous Epithelial Cell,Urine Many per lpf (None-Few); WBC,Urine 15-30 per hpf (0-3)
[2019-02-28 20:22] LABS: VBG HCO3 14 mEq/L (21-27); VBG PCO2 37 mmHg (41-51); VBG PH 7.17 pH Units (7.32-7.42); VBG PO2 127 mmHg (25-50)
[2019-02-28 20:32] LABS: Albumin 3.9 g/dL (3.5-5.7); Albumin/Globulin Ratio 1.2 (1.1-2.2); Bilirubin,Total 0.2 mg/dL (0.3-1.0); Calcium 8.4 mg/dL (8.6-10.3); Globulin 3.2 g/dL (2.4-3.5); Magnesium 1.6 mg/dL (1.6-2.6); Phosphorous 5.7 mg/dL (2.7-4.5); Potassium 6.2 mEq/L (3.5-5.1); Total Protein 7.1 g/dL (6.4-8.9)
[2019-02-28] MEDS ORDERED: Naloxone 0.4 MG/ML INJ IVP PRN (20:35)
[2019-02-28 20:39] LABS: Troponin I < 0.03 ng/mL (< 0.04)
[2019-02-28] MEDS ORDERED: 0.9 % Sodium Chloride w KCl 20 MEQ/1,000 ML MLS IVC SCH (20:45)
[2019-02-28 20:55] LABS: Creatine Kinase 31 Units/L (30-223)
[2019-02-28] MEDS: *HR* Heparin 5,000 UNIT/ML VIAL SQ SCH (22:31)
[2019-03-01] MEDS ORDERED: Albuterol 2.5 MG/3 ML NEBULIZER IH ONE (00:05)
[2019-03-01] MEDS ORDERED: Furosemide 20 MG/2 ML VIAL IVP ONE (00:07)
[2019-03-01] MEDS ORDERED: Insulin Human Regular 10 UNIT in D10% in Water 500 ML IVC SCH (00:15)
[2019-03-01] MEDS ORDERED: Calcium Gluconate 1gm/50mL 1 GM/50 ML BAG IVPB ONE (00:30)
[2019-03-01] MEDS: 0.9 % Sodium Chloride 1,000 ML IVC SCH ×2 (00:37→10:35)
[2019-03-01 00:54] LABS: Bilirubin,Urine Negative (Negative); Blood,Urine Negative (Negative); Clarity,Urine Clear (Clear); Color,Urine Yellow (Yellow); Glucose,Urine (UA) Normal (Normal); Ketones,Urine Negative (Negative); Leukocyte Esterase,Urine Moderate (Negative); Nitrite,Urine Negative (Negative); PH,Urine 5.5 pH Units (5.0-8.0); Protein,Urine 30 mg/dL (Neg-Trace); Specific Gravity,Urine 1.016 (1.010-1.025); Urobilinogen,Urine Normal (Normal)
[2019-03-01 00:56] LABS: Bacteria,Urine None Seen per hpf (None-Few); Hyaline Casts,Urine None Seen per lpf (None-Few); RBC,Urine 0-3 per hpf (0-3); Squamous Epithelial Cell,Urine Many per lpf (None-Few)
[2019-03-01 01:29] LABS: Sodium, Urine 82.6 mEq/L
[2019-03-01 02:36] LABS: Basophils % 0.2 %; Hemoglobin 10.4 g/dL (11.5-15.4); Immature Granulocytes % 1.4 % (0-4); Immature Reticulocyte % 26.5 % (11.0-38.0); Lymphocytes # 0.9 K/mcL (0.6-4.6); Lymphocytes % 10.3 %; Mean Corpuscular HGB Conc 32.5 g/dL (31.6-35.5); Mean Corpuscular Hemoglobin 27.9 pg (28.0-33.3); Mean Corpuscular Volume 85.8 fL (83.0-100.0); Mean Platelet Volume 9.4 fL (9.4-12.4); Monocytes # 0.5 K/mcL (0.0-1.3); Monocytes % 5.4 %; Neutrophils # 7.1 K/mcL (1.6-8.9); Platelet Count 282 K/mcL (140-400); Red Blood Count 3.73 M/mcL (3.82-4.97); Red Cell Distribution Width 18.5 % (11.5-14.5); Retculocyte # 0.14 M/mcL (0.05-0.10); Reticulocyte % 3.8 % (1.6-2.8); Segmented Neutrophils % 82.7 %; White Blood Count 8.6 K/mcL (4.3-11.1)
[2019-03-01 02:45] LABS: Prothrombin Time 11.5 Seconds (9.4-12.1)
[2019-03-01 03:02] LABS: % Iron Saturation 11 % (15-50); BUN/Creatinine Ratio 24 (6-26); Blood Urea Nitrogen 67 mg/dL (6-20); C-Reactive Protein 10 mg/L (Less than 10); Calcium 8.6 mg/dL (8.6-10.3); Carbon Dioxide 16 mEq/L (23-29); Chloride 108 mEq/L (98-107); Chol/HDL Ratio 5.8 (0-4.9); Cholesterol 181 mg/dL (< 200); Glucose 280 mg/dL (70-105); HDL Cholesterol 31 mg/dL (40-59); Iron 45 mcg/dL (50-170); LDL Cholesterol,Calculated 95 mg/dL (0-99); Osmolality,Calculated 303 (280-300); Potassium 6.4 mEq/L (3.5-5.1); Sodium 132 mEq/L (136-145); Transferrin 288 mg/dL (203-362); Triglycerides 275 mg/dL (< 150); Troponin I < 0.03 ng/mL (< 0.04); eGFR For African Americans 21 (> 60); eGFR For Non-African Americans 18 (> 60)
[2019-03-01 03:25] LABS: Folate 8.6 ng/mL (3.0-16.0)
[2019-03-01] MEDS ORDERED: Morphine Sulfate 2 MG/ML SYRINGE IVP ONE (04:38)
[2019-03-01] MEDS ORDERED: Sodium Bicarbonate 50 MEQ/50 ML VIAL IVP ONE (05:47)
[2019-03-01] MEDS: *HR* Heparin 5,000 UNIT/ML VIAL SQ SCH ×3 (06:09→21:09)
[2019-03-01 08:02] LABS: Estimated Average Glucose 194 mg/dl
[2019-03-01 08:40] LABS: Albumin 3.7 g/dL (3.5-5.7); Calcium 8.3 mg/dL (8.6-10.3); Phosphorous 6.5 mg/dL (2.7-4.5); Potassium 6.6 mEq/L (3.5-5.1)
[2019-03-01] MEDS ORDERED: Ampicillin/Sulbactam 3,000 MG in 0.9 % Sodium Chloride Mini Bag 100 ML IVPB SCH (08:41)
[2019-03-01] MEDS ORDERED: Insulin Human Regular 10 UNIT in 0.9 % Sodium Chloride 10 ML IV ONE (08:44)
[2019-03-01] MEDS ORDERED: *HR* Dextrose 25% in Water (Syg) 10 ML SYRINGE IVP ONE (08:44)
[2019-03-01] MEDS: Calcium Gluconate 1gm/50mL 1 GM/50 ML BAG IVPB SCH ×2 (10:34→11:34)
[2019-03-01] MEDS ORDERED: *HR* Dextrose 50 % in Water (Syg) 50 ML SYRINGE IVP ONE (10:45)
[2019-03-01] MEDS: Sodium Bicarbonate 150 MEQ in D5% in Water 1,000 ML IVC SCH (13:00)
[2019-03-01] MEDS: Ampicillin/Sulbactam 3,000 MG in 0.9 % Sodium Chloride Mini Bag 100 ML IVPB SCH (18:39)
[2019-03-01] MEDS ORDERED: *HR* Dextrose 50 % in Water (Syg) 50 ML SYRINGE IVP PRN (19:18)
[2019-03-01] MEDS ORDERED: Dextrose Gel 15 GM/37.5 ML TUBE PO PRN ×2 (19:18)
[2019-03-01] MEDS ORDERED: D5% in Water 1,000 ML IVC PRN (19:18)
[2019-03-01] MEDS: Acetaminophen 325 MG TABLET PO PRN (21:09)
[2019-03-02] MEDS: Ampicillin/Sulbactam 3,000 MG in 0.9 % Sodium Chloride Mini Bag 100 ML IVPB SCH ×4 (00:14→17:47)
[2019-03-02] MEDS: Sodium Bicarbonate 150 MEQ in D5% in Water 1,000 ML IVC SCH ×3 (00:15→22:10)
[2019-03-02 04:18] LABS: Hematocrit 27.8 % (35.3-44.9); Hemoglobin 9.2 g/dL (11.5-15.4); Immature Granulocytes % 0.6 % (0-4); Lymphocytes # 0.8 K/mcL (0.6-4.6); Lymphocytes % 17.9 %; Mean Corpuscular HGB Conc 33.1 g/dL (31.6-35.5); Mean Corpuscular Hemoglobin 27.9 pg (28.0-33.3); Mean Corpuscular Volume 84.2 fL (83.0-100.0); Mean Platelet Volume 9.4 fL (9.4-12.4); Monocytes # 0.3 K/mcL (0.0-1.3); Monocytes % 6.4 %; Neutrophils # 3.5 K/mcL (1.6-8.9); Platelet Count 239 K/mcL (140-400); Red Cell Distribution Width 18.3 % (11.5-14.5); Segmented Neutrophils % 75.1 %; White Blood Count 4.7 K/mcL (4.3-11.1)
[2019-03-02 04:39] LABS: Calcium 8.5 mg/dL (8.6-10.3); Potassium 4.9 mEq/L (3.5-5.1)
[2019-03-02] MEDS: *HR* Heparin 5,000 UNIT/ML VIAL SQ SCH ×3 (05:55→22:08)
[2019-03-02] MEDS: Insulin LISPRO 300 UNITS/3 ML VIAL SQ SCH ×3 (08:23→15:46)
[2019-03-02] MEDS: Acetaminophen 325 MG TABLET PO PRN ×2 (11:20→22:08)
[2019-03-02] MEDS: hydroCHLOROthiazide 25 MG TABLET PO SCH (13:48)
[2019-03-03] MEDS: Ampicillin/Sulbactam 3,000 MG in 0.9 % Sodium Chloride Mini Bag 100 ML IVPB SCH ×2 (00:38→05:46)
[2019-03-03] MEDS: Sodium Bicarbonate 150 MEQ in D5% in Water 1,000 ML IVC SCH (03:12)
[2019-03-03] MEDS: *HR* Heparin 5,000 UNIT/ML VIAL SQ SCH (05:45)
[2019-03-03 07:32] VITALS: BP 180/82
[2019-03-03 07:46] LABS: BUN/Creatinine Ratio 29 (6-26); Blood Urea Nitrogen 29 mg/dL (6-20); Calcium 8.7 mg/dL (8.6-10.3); Carbon Dioxide 27 mEq/L (23-29); Chloride 106 mEq/L (98-107); Glucose 186 mg/dL (70-105); Osmolality,Calculated 301 (280-300); Potassium 4.5 mEq/L (3.5-5.1); Sodium 140 mEq/L (136-145); eGFR For African Americans > 60 (> 60); eGFR For Non-African Americans 58 (> 60)
[2019-03-03 08:01] LABS: Hematocrit 27.6 % (35.3-44.9); Hemoglobin 9.3 g/dL (11.5-15.4); Immature Granulocytes % 1.2 % (0-4); Lymphocytes # 0.8 K/mcL (0.6-4.6); Lymphocytes % 22.9 %; Mean Corpuscular HGB Conc 33.7 g/dL (31.6-35.5); Mean Corpuscular Hemoglobin 27.6 pg (28.0-33.3); Mean Corpuscular Volume 81.9 fL (83.0-100.0); Mean Platelet Volume 9.6 fL (9.4-12.4); Monocytes # 0.3 K/mcL (0.0-1.3); Monocytes % 7.9 %; Neutrophils # 2.3 K/mcL (1.6-8.9); Platelet Count 216 K/mcL (140-400); Red Blood Count 3.37 M/mcL (3.82-4.97); Red Cell Distribution Width 17.2 % (11.5-14.5); White Blood Count 3.4 K/mcL (4.3-11.1)
[2019-03-03] MEDS ORDERED: FLU Vac QV 19-20 (6Month+)/PF 0.5 ML SYRINGE IM ONE (08:50)
[2019-03-03] MEDS: hydroCHLOROthiazide 25 MG TABLET PO SCH (09:08)
[2019-03-03] MEDS: Insulin LISPRO 300 UNITS/3 ML VIAL SQ SCH (09:09)
== END 2019-03-03 10:30 | disposition home or self-care (01) | DRG 603 ==
LOC: 2ANU 16:17 → EMEROOARM 16:17 → SUATTDRO 20:49 → 2ANU 20:50
PROVIDERS: ADMIT Internal Medicine; ATTEND Internal Medicine

== ENCOUNTER 2019-08-26 14:58 | Inpatient (IN) ==
[2019-08-26] MEDS ORDERED: Isovue-370 500 ML BOTTLE IVP ONE (15:17)
[2019-08-26] MEDS ORDERED: 0.9 % Sodium Chloride 1,000 ML IVC ONE (15:17)
[2019-08-26] MEDS ORDERED: Piperacillin/Tazobactam 3.375 GM in Water for inj. (sterile) 20 ML IVP ONE (15:17)
[2019-08-26 15:48] LABS: Basophils % 0.1 %; Hematocrit 29.6 % (35.3-44.9); Hemoglobin 8.8 g/dL (11.5-15.4); Immature Granulocytes % 2.4 % (0-4); Lymphocytes # 1.3 K/mcL (0.6-4.6); Lymphocytes % 12.7 %; Mean Corpuscular HGB Conc 29.7 g/dL (31.6-35.5); Mean Corpuscular Hemoglobin 25.3 pg (28.0-33.3); Mean Corpuscular Volume 85.1 fL (83.0-100.0); Mean Platelet Volume 9.3 fL (9.4-12.4); Monocytes # 0.5 K/mcL (0.0-1.3); Monocytes % 5.3 %; Neutrophils # 7.9 K/mcL (1.6-8.9); Platelet Count 452 K/mcL (140-400); Red Blood Count 3.48 M/mcL (3.82-4.97); Red Cell Distribution Width 15.2 % (11.5-14.5); Segmented Neutrophils % 79.5 %
[2019-08-26 16:08] LABS: BUN/Creatinine Ratio 22 (6-26); Blood Urea Nitrogen 25 mg/dL (6-20); C-Reactive Protein 194 mg/L (Less than 10); Calcium 8.4 mg/dL (8.6-10.3); Carbon Dioxide 22 mEq/L (23-29); Chloride 94 mEq/L (98-107); Glucose 544 mg/dL (70-105); Osmolality,Calculated 293 (280-300); Potassium 4.7 mEq/L (3.5-5.1); Sodium 127 mEq/L (136-145); eGFR For African Americans > 60 (> 60); eGFR For Non-African Americans 50 (> 60)
[2019-08-26] MEDS ORDERED: *HR* HYDROmorphone (PF) 1 MG/ML SYRINGE IVP ONE (17:36)
[2019-08-26] MEDS ORDERED: Insulin Regular, Human 100 UNIT/ML SQ ONE (18:53)
[2019-08-26] MEDS ORDERED: Naloxone 0.4 MG/ML INJ IVP PRN (19:21)
[2019-08-26] MEDS ORDERED: 0.9 % Sodium Chloride 1,000 ML IVC SCH (19:30)
[2019-08-26 19:50] LABS: Bilirubin,Urine Negative (Negative); Blood,Urine Negative (Negative); Clarity,Urine Clear (Clear); Color,Urine Yellow (Yellow); Glucose,Urine (UA) >=1000 mg/dL (Normal); Ketones,Urine Negative (Negative); Leukocyte Esterase,Urine Negative (Negative); Nitrite,Urine Negative (Negative); Protein,Urine Negative (Neg-Trace); Urobilinogen,Urine Normal (Normal)
[2019-08-26] MEDS ORDERED: *HR* Dextrose 50 % in Water (Syg) 50 ML SYRINGE IVP PRN (20:51)
[2019-08-26] MEDS ORDERED: Dextrose Gel 15 GM/37.5 ML TUBE PO PRN ×2 (20:51)
[2019-08-26] MEDS ORDERED: D5% in Water 1,000 ML IVC PRN (20:51)
[2019-08-26] MEDS ORDERED: Acetaminophen 325 MG TABLET PO PRN (20:53)
[2019-08-26] MEDS ORDERED: Insulin DETEMIR 100 UNIT/ML X5UNITS SQ SCH (21:00)
[2019-08-26] MEDS: *HR* Heparin 5,000 UNIT/ML VIAL SQ SCH (21:36)
[2019-08-26 22:07] LABS: Estimated Average Glucose 292 mg/dl
[2019-08-26 22:20] LABS: BUN/Creatinine Ratio 20 (6-26); Blood Urea Nitrogen 22 mg/dL (6-20); Calcium 8.7 mg/dL (8.6-10.3); Carbon Dioxide 22 mEq/L (23-29); Chloride 97 mEq/L (98-107); Glucose 413 mg/dL (70-105); Osmolality,Calculated 287 (280-300); Potassium 4.2 mEq/L (3.5-5.1); Sodium 128 mEq/L (136-145); eGFR For African Americans > 60 (> 60); eGFR For Non-African Americans 53 (> 60)
[2019-08-26] MEDS: Piperacillin/Tazobactam 3.375 GM in 0.9 % Sodium Chloride Mini Bag 100 ML IVPB SCH (23:59)
[2019-08-27] MEDS: *HR* Heparin 5,000 UNIT/ML VIAL SQ SCH ×2 (06:05→17:25)
[2019-08-27 07:44] LABS: Basophils % 0.1 %; Hemoglobin 8.2 g/dL (11.5-15.4); Immature Granulocytes % 3.2 % (0-4); Lymphocytes # 1.2 K/mcL (0.6-4.6); Mean Corpuscular HGB Conc 30.4 g/dL (31.6-35.5); Mean Corpuscular Hemoglobin 25.2 pg (28.0-33.3); Mean Corpuscular Volume 83.1 fL (83.0-100.0); Monocytes # 0.5 K/mcL (0.0-1.3); Monocytes % 5.5 %; Neutrophils # 6.6 K/mcL (1.6-8.9); Platelet Count 412 K/mcL (140-400); Red Blood Count 3.25 M/mcL (3.82-4.97); Red Cell Distribution Width 15.1 % (11.5-14.5); Segmented Neutrophils % 77.2 %; White Blood Count 8.6 K/mcL (4.3-11.1)
[2019-08-27] MEDS: Piperacillin/Tazobactam 3.375 GM in 0.9 % Sodium Chloride Mini Bag 100 ML IVPB SCH ×2 (07:54→16:50)
[2019-08-27 08:02] LABS: Alanine Aminotransferase 7 Units/L (7-52); Albumin 2.9 g/dL (3.5-5.7); Albumin/Globulin Ratio 0.7 (1.1-2.2); Alkaline Phosphatase 76 Units/L (34-104); Aspartate Amino Transferase 9 Units/L (13-39); BUN/Creatinine Ratio 19 (6-26); Bilirubin,Total 0.2 mg/dL (0.3-1.0); Blood Urea Nitrogen 21 mg/dL (6-20); Calcium 8.4 mg/dL (8.6-10.3); Carbon Dioxide 22 mEq/L (23-29); Chloride 100 mEq/L (98-107); Globulin 3.9 g/dL (2.4-3.5); Glucose 392 mg/dL (70-105); Osmolality,Calculated 293 (280-300); Potassium 4.4 mEq/L (3.5-5.1); Sodium 132 mEq/L (136-145); Total Protein 6.8 g/dL (6.4-8.9); eGFR For African Americans > 60 (> 60); eGFR For Non-African Americans 52 (> 60)
[2019-08-27] MEDS: Insulin LISPRO 300 UNITS/3 ML VIAL SQ SCH ×4 (09:14→22:04)
[2019-08-27] MEDS ORDERED: Ondansetron 4 MG/2 ML VIAL ONE (15:53)
[2019-08-27] MEDS ORDERED: *HR* Propofol 200 MG/20 ML VIAL IVP ONE (15:53)
[2019-08-27] MEDS ORDERED: *HR* Succinylcholine 200 MG/10 ML VIAL IVP ONE (15:53)
[2019-08-27] MEDS ORDERED: Lidocaine -MPF 2% 2 ML VIAL ONE (15:53)
[2019-08-27] MEDS ORDERED: *HR* FentaNYL (PF) 100 MCG/2 ML VIAL ONE ×2 (15:53→16:44)
[2019-08-27] MEDS ORDERED: Dexamethasone 4 MG/ML VIAL ONE (15:53)
[2019-08-27] MEDS ORDERED: Vancomycin 1,000 MG VIAL ONE (16:41)
[2019-08-27] MEDS ORDERED: Ondansetron 4 MG/2 ML VIAL IVP ONE (16:46)
[2019-08-27] MEDS ORDERED: *HR* Promethazine 25 MG/ML VIAL IVP PRN (16:46)
[2019-08-27] MEDS ORDERED: *HR* HYDROmorphone PF 0.5 MG/0.5 ML SYRINGE IVP PRN (16:46)
[2019-08-27] MEDS ORDERED: *HR* OxyCODONE Immed Rel 5 MG TABLET PO PRN (16:46)
[2019-08-27] MEDS ORDERED: D5% in Water 1,000 ML IVC PRN (18:29)
[2019-08-27] MEDS ORDERED: *HR* Dextrose 50 % in Water (Syg) 50 ML SYRINGE IVP PRN (18:29)
[2019-08-27] MEDS ORDERED: Naloxone 0.4 MG/ML INJ IVP PRN (18:29)
[2019-08-27] MEDS ORDERED: Dextrose Gel 15 GM/37.5 ML TUBE PO PRN ×2 (18:29)
[2019-08-27] MEDS ORDERED: Insulin LISPRO 300 UNITS/3 ML VIAL SQ SCH (20:52)
[2019-08-27] MEDS ORDERED: Gabapentin 300 MG CAPSULE PO SCH (21:00)
[2019-08-27] MEDS: Gabapentin 300 MG CAPSULE PO SCH (22:03)
[2019-08-27] MEDS: Insulin DETEMIR 100 UNIT/ML X5UNITS SQ SCH (22:04)
[2019-08-28] MEDS: Piperacillin/Tazobactam 3.375 GM in 0.9 % Sodium Chloride Mini Bag 100 ML IVPB SCH ×2 (00:28→08:03)
[2019-08-28] MEDS: Insulin LISPRO 300 UNITS/3 ML VIAL SQ SCH ×6 (02:34→22:25)
[2019-08-28] MEDS ORDERED: *HR* Dextrose 50 % in Water (Syg) 50 ML SYRINGE IVP PRN (03:35)
[2019-08-28] MEDS ORDERED: Dextrose Gel 15 GM/37.5 ML TUBE PO PRN ×2 (03:35)
[2019-08-28] MEDS ORDERED: D5% in Water 1,000 ML IVC PRN (03:35)
[2019-08-28] MEDS: *HR* Heparin 5,000 UNIT/ML VIAL SQ SCH ×2 (06:02→17:50)
[2019-08-28] MEDS: Aspirin Enteric Coated 81 MG Tablet PO SCH (08:02)
[2019-08-28] MEDS: Gabapentin 300 MG CAPSULE PO SCH ×2 (08:02→20:11)
[2019-08-28] MEDS ORDERED: Aspirin Enteric Coated 81 MG Tablet PO SCH (09:00)
[2019-08-28] MEDS ORDERED: hydroCHLOROthiazide 25 MG TABLET PO SCH ×2 (09:00)
[2019-08-28] MEDS: cefTRIAXone 2,000 MG in Water for inj. (sterile) 20 ML IVP SCH (14:24)
[2019-08-28 14:58] LABS: Basophils % 0.2 %; Hematocrit 27.7 % (35.3-44.9); Hemoglobin 8.2 g/dL (11.5-15.4); Immature Granulocytes % 2.2 % (0-4); Lymphocytes # 1.6 K/mcL (0.6-4.6); Lymphocytes % 18.2 %; Mean Corpuscular HGB Conc 29.6 g/dL (31.6-35.5); Mean Corpuscular Hemoglobin 24.9 pg (28.0-33.3); Mean Corpuscular Volume 84.2 fL (83.0-100.0); Mean Platelet Volume 8.8 fL (9.4-12.4); Monocytes # 0.5 K/mcL (0.0-1.3); Monocytes % 6.1 %; Neutrophils # 6.3 K/mcL (1.6-8.9); Nucleated Red Blood Cells 0.2 /100 WBC (0); Platelet Count 477 K/mcL (140-400); Red Blood Count 3.29 M/mcL (3.82-4.97); Red Cell Distribution Width 15.5 % (11.5-14.5); Segmented Neutrophils % 73.3 %; White Blood Count 8.7 K/mcL (4.3-11.1)
[2019-08-28] MEDS ORDERED: cefTRIAXone 2,000 MG in 0.9 % Sodium Chloride Mini Bag 100 ML IVPB SCH (15:00)
[2019-08-28] MEDS ORDERED: 0.9 % Sodium Chloride 1,000 ML IVC SCH (15:15)
[2019-08-28 15:16] LABS: Calcium 8.1 mg/dL (8.6-10.3)
[2019-08-28] MEDS ORDERED: Aminoglycoside Consult 1 EACH MC ONE (19:14)
[2019-08-28] MEDS: Insulin DETEMIR 100 UNIT/ML X5UNITS SQ SCH (22:25)
[2019-08-29] MEDS: Acetaminophen 325 MG TABLET PO PRN ×3 (00:52→22:50)
[2019-08-29 04:45] LABS: Hematocrit 27.1 % (35.3-44.9); Hemoglobin 7.9 g/dL (11.5-15.4); Mean Corpuscular HGB Conc 29.2 g/dL (31.6-35.5); Mean Corpuscular Hemoglobin 24.8 pg (28.0-33.3); Mean Corpuscular Volume 85.2 fL (83.0-100.0); Mean Platelet Volume 8.7 fL (9.4-12.4); Platelet Count 446 K/mcL (140-400); Red Blood Count 3.18 M/mcL (3.82-4.97); Red Cell Distribution Width 15.5 % (11.5-14.5); White Blood Count 7.1 K/mcL (4.3-11.1)
[2019-08-29 05:08] LABS: BUN/Creatinine Ratio 24 (6-26); Blood Urea Nitrogen 22 mg/dL (6-20); Calcium 7.7 mg/dL (8.6-10.3); Carbon Dioxide 24 mEq/L (23-29); Chloride 101 mEq/L (98-107); Glucose 305 mg/dL (70-105); Osmolality,Calculated 293 (280-300); Potassium 4.4 mEq/L (3.5-5.1); Sodium 134 mEq/L (136-145); eGFR For African Americans > 60 (> 60); eGFR For Non-African Americans > 60 (> 60)
[2019-08-29] MEDS: *HR* Heparin 5,000 UNIT/ML VIAL SQ SCH ×2 (05:44→17:07)
[2019-08-29] MEDS: Insulin LISPRO 300 UNITS/3 ML VIAL SQ SCH ×6 (08:05→22:54)
[2019-08-29] MEDS: Aspirin Enteric Coated 81 MG Tablet PO SCH (08:06)
[2019-08-29] MEDS: Gabapentin 300 MG CAPSULE PO SCH ×2 (08:06→21:12)
[2019-08-29] MEDS: cefTRIAXone 2,000 MG in Water for inj. (sterile) 20 ML IVP SCH (08:06)
[2019-08-29 08:37] LABS: Estimated Average Glucose 298 mg/dl
[2019-08-29] MEDS: metroNIDAZOLE 500 MG TABLET PO SCH ×3 (09:34→21:11)
[2019-08-29] MEDS: *HR* Metformin 500 MG TABLET PO SCH (17:07)
[2019-08-29] MEDS ORDERED: Insulin DETEMIR 100 UNIT/ML X5UNITS SQ SCH (21:00)
[2019-08-30 03:59] LABS: BUN/Creatinine Ratio 21 (6-26); Blood Urea Nitrogen 19 mg/dL (6-20); Calcium 8.5 mg/dL (8.6-10.3); Carbon Dioxide 24 mEq/L (23-29); Chloride 101 mEq/L (98-107); Glucose 231 mg/dL (70-105); Magnesium 1.2 mg/dL (1.6-2.6); Osmolality,Calculated 290 (280-300); Potassium 4.8 mEq/L (3.5-5.1); Sodium 135 mEq/L (136-145); eGFR For African Americans > 60 (> 60); eGFR For Non-African Americans > 60 (> 60)
[2019-08-30] MEDS: *HR* Heparin 5,000 UNIT/ML VIAL SQ SCH (05:40)
[2019-08-30] MEDS: *HR* Metformin 500 MG TABLET PO SCH (08:04)
[2019-08-30] MEDS: Aspirin Enteric Coated 81 MG Tablet PO SCH (08:04)
[2019-08-30] MEDS: cefTRIAXone 2,000 MG in Water for inj. (sterile) 20 ML IVP SCH (08:05)
[2019-08-30] MEDS: Gabapentin 300 MG CAPSULE PO SCH (08:05)
[2019-08-30] MEDS: metroNIDAZOLE 500 MG TABLET PO SCH (08:05)
[2019-08-30] MEDS: Insulin LISPRO 300 UNITS/3 ML VIAL SQ SCH ×4 (08:06→12:14)
[2019-08-30] MEDS: Acetaminophen 325 MG TABLET PO PRN (08:12)
[2019-08-30] MEDS ORDERED: lisinopriL 20 MG TABLET PO SCH (09:30)
[2019-08-30 10:59] VITALS: BP 145/72
== END 2019-08-30 13:20 | disposition home health service (06) | DRG 580 ==
LOC: 3ANU 14:58 → EMEROOARM 14:58 → SUATTDRO 19:13 → 3ANU 20:13
PROVIDERS: ADMIT Internal Medicine; ATTEND Internal Medicine

== ENCOUNTER 2022-01-10 13:12 | Inpatient (IN) ==
[2022-01-10] MEDS ORDERED: Naloxone 0.4 MG/ML INJ IVP PRN (17:33)
[2022-01-10] MEDS ORDERED: D5% in Water 1,000 ML IVC PRN (17:36)
[2022-01-10] MEDS ORDERED: *HR* Dextrose 50 % in Water (Syg) 50 ML SYRINGE IVP PRN (17:36)
[2022-01-10] MEDS ORDERED: Dextrose Gel 15 GM/37.5 ML TUBE PO PRN ×2 (17:36)
[2022-01-10 18:02] LABS: ABG Base Excess -6 mEq/L (-2 to 3); ABG HCO3 21 mEq/L (21-27); ABG Oxygen Saturation 92 % (95-98); ABG PCO2 50 mmHg (35-45); ABG PH 7.23 pH Units (7.32-7.45); ABG PO2 75 mmHg (85-104); ABG TCO2 23 mEq/L (20-26)
[2022-01-10 18:14] LABS: Basophils % 0.1 %; Hematocrit 26.8 % (35.3-44.9); Hemoglobin 8.5 g/dL (11.5-15.4); Immature Granulocytes % 3.4 % (0-4); Lymphocytes # 0.8 K/mcL (0.6-4.6); Lymphocytes % 8.7 %; Mean Corpuscular HGB Conc 31.7 g/dL (31.6-35.5); Mean Corpuscular Hemoglobin 26.1 pg (28.0-33.3); Mean Corpuscular Volume 82.2 fL (83.0-100.0); Mean Platelet Volume 9.8 fL (9.4-12.4); Monocytes # 0.4 K/mcL (0.0-1.3); Monocytes % 4.3 %; Neutrophils # 7.3 K/mcL (1.6-8.9); Platelet Count 298 K/mcL (140-400); Red Blood Count 3.26 M/mcL (3.82-4.97); Segmented Neutrophils % 83.5 %; White Blood Count 8.8 K/mcL (4.3-11.1)
[2022-01-10 18:22] LABS: Estimated Average Glucose 275 mg/dl; Hemoglobin A1C 11.2 %
[2022-01-10] MEDS ORDERED: Sodium Bicarbonate 150 MEQ in Water for inj. (sterile) 1,000 ML IVC SCH (18:30)
[2022-01-10 18:39] LABS: INR 1.3; Prothrombin Time 14.9 Seconds (9.4-12.1)
[2022-01-10 18:40] LABS: Alanine Aminotransferase 13 Units/L (7-52); Albumin/Globulin Ratio 0.7 (1.1-2.2); Alkaline Phosphatase 114 Units/L (34-104); Aspartate Amino Transferase 23 Units/L (13-39); BUN/Creatinine Ratio 14 (6-26); Bilirubin,Direct 0.2 mg/dL (0.0-0.2); Bilirubin,Indirect 0.3 mg/dL (0.0-1.0); Bilirubin,Total 0.5 mg/dL (0.3-1.0); Blood Urea Nitrogen 62 mg/dL (6-20); Calcium 7.9 mg/dL (8.6-10.3); Carbon Dioxide 22 mEq/L (23-29); Chloride 98 mEq/L (98-107); Globulin 4.4 g/dL (2.4-3.5); Glucose 190 mg/dL (70-105); Magnesium 1.6 mg/dL (1.6-2.6); Osmolality,Calculated 291 (280-300); Phosphorous 7.2 mg/dL (2.7-4.5); Potassium 5.8 mEq/L (3.5-5.1); Sodium 129 mEq/L (136-145); Total Protein 7.4 g/dL (6.4-8.9); Troponin I < 0.03 ng/mL (< 0.04)
[2022-01-10 18:42] LABS: Activated Partial Thrombo Time 33.3 Seconds (26.0-36.0)
[2022-01-10 18:57] LABS: Sodium, Urine 79.6 mEq/L
[2022-01-10 19:05] LABS: Amorphous Sediment,Urine Few per hpf (None-Few); Bilirubin,Urine Negative (Negative); Blood,Urine Small (Negative); Clarity,Urine Clear (Clear); Color,Urine Colorless (Yellow); Glucose,Urine (UA) Normal (Normal); Ketones,Urine Negative (Negative); Leukocyte Esterase,Urine Negative (Negative); Mucus,Urine Few per lpf (None-Few); Nitrite,Urine Negative (Negative); Protein,Urine Trace mg/dL (Neg-Trace); RBC,Urine 30-50 per hpf (0-3); Specific Gravity,Urine 1.008 (1.010-1.025); Urobilinogen,Urine Normal (Normal); WBC,Urine 0-3 per hpf (0-3)
[2022-01-10] MEDS: Cefepime HCl 1,000 MG in 0.9 % Sodium Chloride 10 ML IVP SCH (19:24)
[2022-01-10] MEDS: Insulin LISPRO 300 UNITS/3 ML VIAL SUBQ SCH (19:43)
[2022-01-10 22:43] LABS: BUN/Creatinine Ratio 15 (6-26); Blood Urea Nitrogen 63 mg/dL (6-20); Calcium 7.8 mg/dL (8.6-10.3); Carbon Dioxide 22 mEq/L (23-29); Chloride 99 mEq/L (98-107); Glucose 187 mg/dL (70-105); Osmolality,Calculated 293 (280-300); Potassium 5.5 mEq/L (3.5-5.1); Sodium 130 mEq/L (136-145)
[2022-01-10 22:44] LABS: Troponin I < 0.03 ng/mL (< 0.04)
[2022-01-11] MEDS: *HR* Heparin 5,000 UNIT/ML VIAL SQ SCH ×4 (00:12→23:17)
[2022-01-11 01:30] LABS: Uric Acid 12.4 mg/dL (2.3-7.6)
[2022-01-11] MEDS: SODIUM ZIRCONIUM CYCLOSILICATE 5 GM POWD.PACK PO SCH ×3 (02:06→15:50)
[2022-01-11] MEDS: Calcium Gluconate 1gm/50mL 1 GM/50 ML BAG IVPB SCH ×2 (02:06→07:18)
[2022-01-11] MEDS: Sodium Bicarbonate 75 MEQ in 0.45 % Sodium Chloride 1,000 ML IVC SCH ×2 (02:14→14:23)
[2022-01-11 02:44] LABS: Protein/Creatinine Ratio,Urine 0.86 mg/mg (0.00-0.20)
[2022-01-11] MEDS ORDERED: *HR* HYDROmorphone (PF) 1 MG/ML SYRINGE IVP ONE (03:45)
[2022-01-11 04:48] LABS: Basophils % 0.1 %; Hematocrit 25.8 % (35.3-44.9); Immature Granulocytes % 3.5 % (0-4); Lymphocytes # 0.7 K/mcL (0.6-4.6); Lymphocytes % 10.2 %; Mean Corpuscular Hemoglobin 25.9 pg (28.0-33.3); Mean Corpuscular Volume 83.5 fL (83.0-100.0); Mean Platelet Volume 9.9 fL (9.4-12.4); Monocytes # 0.6 K/mcL (0.0-1.3); Monocytes % 9.1 %; Neutrophils # 5.5 K/mcL (1.6-8.9); Platelet Count 264 K/mcL (140-400); Red Blood Count 3.09 M/mcL (3.82-4.97); Red Cell Distribution Width 15.9 % (11.5-14.5); Segmented Neutrophils % 77.1 %; White Blood Count 7.1 K/mcL (4.3-11.1)
[2022-01-11 05:10] LABS: BUN/Creatinine Ratio 15 (6-26); Blood Urea Nitrogen 62 mg/dL (6-20); Calcium 7.9 mg/dL (8.6-10.3); Carbon Dioxide 22 mEq/L (23-29); Chloride 99 mEq/L (98-107); Glucose 196 mg/dL (70-105); Magnesium 1.6 mg/dL (1.6-2.6); Osmolality,Calculated 295 (280-300); Phosphorous 7.3 mg/dL (2.7-4.5); Potassium 5.1 mEq/L (3.5-5.1); Sodium 131 mEq/L (136-145); Troponin I < 0.03 ng/mL (< 0.04)
[2022-01-11] MEDS: Cefepime HCl 1,000 MG in 0.9 % Sodium Chloride 10 ML IVP SCH ×2 (07:13→18:33)
[2022-01-11] MEDS: Insulin LISPRO 300 UNITS/3 ML VIAL SUBQ SCH ×4 (07:36→20:32)
[2022-01-11] MEDS: Acetaminophen 325 MG TABLET PO PRN ×2 (15:50→21:19)
[2022-01-11] MEDS ORDERED: Sodium Bicarbonate 75 MEQ in 0.45 % Sodium Chloride 1,000 ML IVC SCH (16:13)
[2022-01-11 19:06] LABS: Potassium 5.4 mEq/L (3.5-5.1)
[2022-01-12] MEDS: Cefepime HCl 1,000 MG in 0.9 % Sodium Chloride 10 ML IVP SCH (06:32)
[2022-01-12] MEDS: Insulin LISPRO 300 UNITS/3 ML VIAL SUBQ SCH ×4 (08:09→21:41)
[2022-01-12] MEDS: *HR* Heparin 5,000 UNIT/ML VIAL SQ SCH ×2 (08:11→16:50)
[2022-01-12] MEDS: Aspirin Enteric Coated 81 MG Tablet PO SCH (08:11)
[2022-01-12] MEDS: 0.9 % Sodium Chloride 1,000 ML IVC SCH (08:12)
[2022-01-12] MEDS: amLODIPine 5 MG TABLET PO SCH (15:24)
[2022-01-12 15:46] LABS: ABG Base Excess 0 mEq/L (-2 to 3); ABG HCO3 25 mEq/L (21-27); ABG Oxygen Saturation 97 % (95-98); ABG PCO2 40 mmHg (35-45); ABG PH 7.41 pH Units (7.32-7.45); ABG PO2 95 mmHg (85-104); ABG TCO2 26 mEq/L (20-26)
[2022-01-12 15:51] LABS: Calcium 8.2 mg/dL (8.6-10.3); Magnesium 1.5 mg/dL (1.6-2.6); Phosphorous 4.4 mg/dL (2.7-4.5); Potassium 5.4 mEq/L (3.5-5.1)
[2022-01-12 16:06] LABS: Bilirubin,Urine Negative (Negative); Blood,Urine Large (Negative); Calcium Oxalate Crystals,Urine Present per hpf; Clarity,Urine Turbid (Clear); Color,Urine Colorless (Yellow); Glucose,Urine (UA) 30 mg/dL (Normal); Ketones,Urine Negative (Negative); Leukocyte Esterase,Urine Trace (Negative); Mucus,Urine Few per lpf (None-Few); Nitrite,Urine Negative (Negative); Protein,Urine 100 mg/dL (Neg-Trace); RBC,Urine TNTC per hpf (0-3); Specific Gravity,Urine 1.012 (1.010-1.025); Squamous Epithelial Cell,Urine Few per hpf (None-Few); Urobilinogen,Urine Normal (Normal); WBC,Urine 15-30 per hpf (0-3)
[2022-01-12 16:38] LABS: Basophils % 0.1 %; Hemoglobin 8.9 g/dL (11.5-15.4); Immature Granulocytes % 2.1 % (0-4); Lymphocytes # 0.6 K/mcL (0.6-4.6); Lymphocytes % 9.5 %; Mean Corpuscular HGB Conc 31.8 g/dL (31.6-35.5); Mean Corpuscular Hemoglobin 25.9 pg (28.0-33.3); Mean Corpuscular Volume 81.4 fL (83.0-100.0); Mean Platelet Volume 9.4 fL (9.4-12.4); Monocytes # 0.4 K/mcL (0.0-1.3); Monocytes % 6.6 %; Neutrophils # 5.5 K/mcL (1.6-8.9); Platelet Count 338 K/mcL (140-400); Red Blood Count 3.44 M/mcL (3.82-4.97); Red Cell Distribution Width 15.3 % (11.5-14.5); Segmented Neutrophils % 81.7 %; White Blood Count 6.7 K/mcL (4.3-11.1)
[2022-01-12] MEDS: Doxycycline 100 MG in 0.9 % Sodium Chloride Mini Bag 100 ML IVPB SCH (16:52)
[2022-01-12] MEDS: Acetaminophen 325 MG TABLET PO PRN (16:53)
[2022-01-12] MEDS ORDERED: SODIUM ZIRCONIUM CYCLOSILICATE 5 GM POWD.PACK PO ONE (17:45)
[2022-01-12] MEDS: Insulin DETEMIR 100 UNIT/ML X5UNITS SUBQ SCH (21:41)
[2022-01-13] MEDS: *HR* Heparin 5,000 UNIT/ML VIAL SQ SCH ×4 (01:45→23:17)
[2022-01-13] MEDS: 0.9 % Sodium Chloride 1,000 ML IVC SCH (01:52)
[2022-01-13 03:04] LABS: Basophils % 0.2 %; Hemoglobin 8.9 g/dL (11.5-15.4); Immature Granulocytes % 1.5 % (0-4); Lymphocytes # 0.7 K/mcL (0.6-4.6); Lymphocytes % 12.4 %; Mean Corpuscular HGB Conc 31.8 g/dL (31.6-35.5); Mean Corpuscular Hemoglobin 26.2 pg (28.0-33.3); Mean Corpuscular Volume 82.4 fL (83.0-100.0); Mean Platelet Volume 9.7 fL (9.4-12.4); Monocytes # 0.4 K/mcL (0.0-1.3); Monocytes % 7.1 %; Neutrophils # 4.3 K/mcL (1.6-8.9); Platelet Count 348 K/mcL (140-400); Red Cell Distribution Width 15.5 % (11.5-14.5); Segmented Neutrophils % 78.8 %; White Blood Count 5.5 K/mcL (4.3-11.1)
[2022-01-13 03:21] LABS: Calcium 8.7 mg/dL (8.6-10.3); Magnesium 1.4 mg/dL (1.6-2.6); Phosphorous 4.7 mg/dL (2.7-4.5); Potassium 4.9 mEq/L (3.5-5.1)
[2022-01-13] MEDS: Doxycycline 100 MG in 0.9 % Sodium Chloride Mini Bag 100 ML IVPB SCH (07:07)
[2022-01-13] MEDS: Insulin LISPRO 300 UNITS/3 ML VIAL SUBQ SCH ×4 (07:45→21:05)
[2022-01-13] MEDS: Aspirin Enteric Coated 81 MG Tablet PO SCH (08:54)
[2022-01-13] MEDS: Acetaminophen 325 MG TABLET PO PRN (08:54)
[2022-01-13] MEDS: amLODIPine 5 MG TABLET PO SCH (08:55)
[2022-01-13] MEDS ORDERED: ALPRAZolam 0.5 MG TABLET PO PRN (11:13)
[2022-01-13] MEDS ORDERED: ALPRAZolam 0.5 MG TABLET PO SCH (21:00)
[2022-01-13] MEDS: Insulin DETEMIR 100 UNIT/ML X5UNITS SUBQ SCH (21:03)
[2022-01-13] MEDS: Doxycycline 100 MG CAPSULE PO SCH (21:03)
[2022-01-14 04:47] LABS: Hematocrit 26.6 % (35.3-44.9); Hemoglobin 8.1 g/dL (11.5-15.4); Immature Granulocytes % 1.6 % (0-4); Lymphocytes % 17.4 %; Mean Corpuscular HGB Conc 30.5 g/dL (31.6-35.5); Mean Corpuscular Hemoglobin 25.5 pg (28.0-33.3); Mean Corpuscular Volume 83.6 fL (83.0-100.0); Monocytes # 0.4 K/mcL (0.0-1.3); Monocytes % 7.2 %; Neutrophils # 4.2 K/mcL (1.6-8.9); Platelet Count 318 K/mcL (140-400); Red Blood Count 3.18 M/mcL (3.82-4.97); Red Cell Distribution Width 15.8 % (11.5-14.5); Segmented Neutrophils % 73.8 %; White Blood Count 5.7 K/mcL (4.3-11.1)
[2022-01-14 05:08] LABS: Magnesium 1.4 mg/dL (1.6-2.6); Phosphorous 4.7 mg/dL (2.7-4.5); Potassium 5.1 mEq/L (3.5-5.1)
[2022-01-14] MEDS: Doxycycline 100 MG CAPSULE PO SCH ×2 (09:36→21:10)
[2022-01-14] MEDS: amLODIPine 5 MG TABLET PO SCH (09:36)
[2022-01-14] MEDS: Aspirin Enteric Coated 81 MG Tablet PO SCH (09:36)
[2022-01-14] MEDS: *HR* Heparin 5,000 UNIT/ML VIAL SQ SCH ×2 (09:37→15:42)
[2022-01-14] MEDS: Insulin LISPRO 300 UNITS/3 ML VIAL SUBQ SCH ×4 (09:39→21:10)
[2022-01-14] MEDS: Acetaminophen 325 MG TABLET PO PRN (11:14)
[2022-01-14] MEDS ORDERED: ALPRAZolam 0.5 MG TABLET PO SCH (21:00)
[2022-01-14] MEDS: Insulin DETEMIR 100 UNIT/ML X5UNITS SUBQ SCH (21:16)
[2022-01-15] MEDS: *HR* Heparin 5,000 UNIT/ML VIAL SQ SCH ×2 (00:24→08:57)
[2022-01-15 00:43] LABS: Basophils % 0.2 %; Hemoglobin 8.3 g/dL (11.5-15.4); Immature Granulocytes % 1.5 % (0-4); Lymphocytes # 1.5 K/mcL (0.6-4.6); Mean Corpuscular HGB Conc 30.7 g/dL (31.6-35.5); Mean Corpuscular Hemoglobin 25.9 pg (28.0-33.3); Mean Corpuscular Volume 84.1 fL (83.0-100.0); Mean Platelet Volume 9.4 fL (9.4-12.4); Monocytes # 0.4 K/mcL (0.0-1.3); Monocytes % 5.9 %; Neutrophils # 4.7 K/mcL (1.6-8.9); Platelet Count 318 K/mcL (140-400); Red Blood Count 3.21 M/mcL (3.82-4.97); Red Cell Distribution Width 15.7 % (11.5-14.5); Segmented Neutrophils % 70.4 %; White Blood Count 6.6 K/mcL (4.3-11.1)
[2022-01-15 02:03] LABS: Calcium 9.1 mg/dL (8.6-10.3); Magnesium 1.5 mg/dL (1.6-2.6); Phosphorous 5.6 mg/dL (2.7-4.5); Potassium 5.1 mEq/L (3.5-5.1)
[2022-01-15 05:23] VITALS: PULSE 50; TEMP 97.5
[2022-01-15 08:55] VITALS: BP 165/64
[2022-01-15] MEDS: Insulin LISPRO 300 UNITS/3 ML VIAL SUBQ SCH (08:56)
[2022-01-15] MEDS: Aspirin Enteric Coated 81 MG Tablet PO SCH (08:59)
[2022-01-15] MEDS: Doxycycline 100 MG CAPSULE PO SCH (08:59)
[2022-01-15] MEDS: amLODIPine 5 MG TABLET PO SCH (08:59)
[2022-01-15] MEDS ORDERED: Furosemide 20 MG TABLET PO SCH (09:00)
[2022-01-15 11:18] VITALS: O2SAT 92
== END 2022-01-15 12:23 | disposition home health service (06) | DRG 682 ==
LOC: SUATTDRO 17:26 → ICNU 17:26 → 2NENU 01-12 00:48
PROVIDERS: ADMIT Pediatrics; ATTEND Internal Medicine